=== PATIENT | female | born 1965 | race Caucasian/White ===

== ENCOUNTER 2017-07-08 17:57 | Emergency (ER) | payer OTHER, BC ==
[~2017-07-08] VITALS: Ht 167.6 cm; Wt 72.3 kg
[2017-07-08 18:02] VITALS: TEMP 36.4; Ht 167.6 cm; Wt 72.3 kg
--- NOTE | 2017-07-08 20:47 | EMERGENCY ROOM VISIT NOTE ---
History Report prepared by Janeth: Ara Cherry Under the Supervision of: Dr. Dominic Howard D.O. First contact with patient: 20:21 Chief Complaint: SHOULDER PAIN Stated Complaint: PAIN IN R SHOULDER,ARM AND HAND History of Present Illness The patient is a 51 year old female who presents to the Emergency Room with complaints of worsening right shoulder pain starting 4 days ago. The patient was pushing a 1500 lb roll at work when she injured her right shoulder. She thought she had just pulled a muscle, but the pain has worsened. The pain worsens with movement of her arm. She went to urgent care and was referred to the ED because she had swelling to her arm and fingers. She had an X-ray which did not show any fractures. She was sent to the ED over concerns of a blood clot. Source of History: patient Onset: 4 days ago Position: shoulder (right) Quality: other (pain) Timing: worsening Modifying Factors (Worsening): movement Note: Pt reports swelling to the arm and fingers. Review of Systems See HPI for pertinent positives & negatives. A total of 10 systems reviewed and were otherwise negative. Past Medical & Surgical Medical Problems: (1) No chronic problems Family History No pertinent family history stated. Social History Smoking Status: Current Every Day Smoker Marital Status: Occupation Status: employed Physical Exam Vital Signs Date Time Temp Pulse Resp B/P (MAP) Pulse Ox O2 Delivery O2 Flow Rate FiO2 07/08/17 22:12 78 17 142/81 95 07/08/17 20:26 74 16 157/84 96 Room Air 07/08/17 18:02 36.4 78 20 167/89 94 Room Air Physical Exam GENERAL: Patient is awake, alert, very anxious appearing and appears to be in significant pain. EYES: The conjunctivae are clear. The pupils are round and reactive. EARS, NOSE, MOUTH AND THROAT: The nose is without any evidence of any deformity. Mucous membranes are moist tongue is midline NECK: The neck is nontender and supple. RESPIRATORY: Normal respiratory effort is noted there is no evidence of wheezing rhonchi or rales CARDIOVASCULAR: Regular rate and rhythm noted there no murmurs rubs or gallops normal S1 normal S2 GASTROINTESTINAL: The abdomen is soft. Bowel sounds are present in all quadrants. Abdomen is nontender MUSCULOSKELETAL/EXTREMITIES: There is significant tenderness over the anterior right shoulder, ROM was diminished secondary to pain. SKIN: There is no obvious evidence of any rash. There are no petechiae, pallor or cyanosis noted. Pulses symmetric in both upper extremities. NEUROLOGIC: Patient is awake alert and oriented x3 Medical Decision & Procedures ER Provider Diagnostic Interpretation: Radiology results as stated below per my review and radiologist interpretation: R VENOUS DOPPLER UPR EXT UNIL HISTORY: Trauma. Pain. Edema. swelling COMPARISON STUDY: None. FINDINGS: The internal jugular vein is patent. There is normal flow within the subclavian vein. There is normal flow and compressibility within the left axillary, basilic, brachial, radial, ulnar, and visualized cephalic veins. IMPRESSION: No DVT within the upper extremity. The above report was generated using voice recognition software. It may contain grammatical, syntax or spelling errors. Electronically signed by: Greg Bowen M.D. 07/08/2017 9:09 PM Dictated Date/Time: 07/08/2017 9:09 PM Laboratory Results 07/08/17 21:21 Red Blood Count 4.41, Mean Corpuscular Volume 90.5, Mean Corpuscular Hemoglobin 31.1, Mean Corpuscular Hemoglobin Concent 34.3, Mean Platelet Volume 9.0, Neutrophils (%) (Auto) 59.5, Lymphocytes (%) (Auto) 28.4, Monocytes (%) (Auto) 9.5, Eosinophils (%) (Auto) 2.3, Basophils (%) (Auto) 0.2, Neutrophils # (Auto) 4.92, Lymphocytes # (Auto) 2.35, Monocytes # (Auto) 0.79, Eosinophils # (Auto) 0.19, Basophils # (Auto) 0.02 07/08/17 21:21 Test 07/08/17 21:21 White Blood Count 8.28 K/uL (4.8-10.8) Red Blood Count 4.41 M/uL (4.2-5.4) Hemoglobin 13.7 g/dL (12.0-16.0) Hematocrit 39.9 % (37-47) Mean Corpuscular Volume 90.5 fL (80-100) Mean Corpuscular Hemoglobin 31.1 pg (25-34) Mean Corpuscular Hemoglobin Concent 34.3 g/dl (32-36) Platelet Count 228 K/uL (130-400) Mean Platelet Volume 9.0 fL (7.4-10.4) Neutrophils (%) (Auto) 59.5 % Lymphocytes (%) (Auto) 28.4 % Monocytes (%) (Auto) 9.5 % Eosinophils (%) (Auto) 2.3 % Basophils (%) (Auto) 0.2 % Neutrophils # (Auto) 4.92 K/uL (1.4-6.5) Lymphocytes # (Auto) 2.35 K/uL (1.2-3.4) Monocytes # (Auto) 0.79 K/uL (0.11-0.59) Eosinophils # (Auto) 0.19 K/uL (0-0.5) Basophils # (Auto) 0.02 K/uL (0-0.2) RDW Standard Deviation 47.2 fL (36.4-46.3) RDW Coefficient of Variation 14.3 % (11.5-14.5) Immature Granulocyte % (Auto) 0.1 % Immature Granulocyte # (Auto) 0.01 K/uL (0.00-0.02) Anion Gap 7.0 mmol/L (3-11) Est Creatinine Clear Calc Drug Dose 86.0 ml/min Estimated GFR () 102.2 Estimated GFR (Non- 88.2 BUN/Creatinine Ratio 17.2 (10-20) Calcium Level 9.2 mg/dl (8.5-10.1) Total Bilirubin 0.5 mg/dl (0.2-1) Aspartate Amino Transf (AST/SGOT) 18 U/L (15-37) Alanine Aminotransferase (ALT/SGPT) 31 U/L (12-78) Alkaline Phosphatase 151 U/L (45-117) Troponin I < 0.015 ng/ml (0-0.045) Total Protein 7.4 gm/dl (6.4-8.2) Albumin 3.5 gm/dl (3.4-5.0) Globulin 3.9 gm/dl (2.5-4.0) Albumin/Globulin Ratio 0.9 (0.9-2) Laboratory results per my review. ECG Per My Interpretation Indication: back/shoulder pain Rate (beats per minute): 69 Rhythm: normal sinus Findings: no ectopy, other (no acute ST segment abnormality) Comparison ECG Date: no prior available ED Course 2022: The patient was evaluated in room B11A. A complete history and physical examination were performed. 2155: Upon reevaluation, the patient is stable. I discussed the results and treatment plan with her. She verbalized agreement of the treatment plan. She was discharged home. Medical Decision Prior records reviewed and summarized above. Triage Nursing notes reviewed. Differential diagnosis: Etiologies such as DVT, musculoskeletal, infection, joint effusion, trauma, lymphedema, idiopathic, CHF, as well as others were entertained.. The patient is a 51-year-old female who suffered an injury to her right shoulder at work. The history and physical exam appear to be consistent with a rotator cuff injury. She was initially seen at the [facility] for this evaluation but was sent to the emergency department for possible DVT in the right upper extremity. Ultrasound was negative. The patient was encouraged to follow-up with orthopedics for further evaluation and return to the emergency department immediately if symptoms change worsening the need arises. Medication Reconcilliation Current Medication List: was personally reviewed by me Blood Pressure Screening Patient's blood pressure: Elevated blood pressure Blood pressure disposition: Elevated BP felt to be situational Impression Primary Impression: Injury of right rotator cuff Scribe Attestation The scribe's documentation has been prepared under my direction and personally reviewed by me in its entirety. I confirm that the note above accurately reflects all work, treatment, procedures, and medical decision making performed by me. Departure Information Dispostion Home / Self-Care Referrals Amber Bell PA-C (PCP) Moisés Mart MD Forms HOME CARE DOCUMENTATION FORM, IMPORTANT VISIT INFORMATION Patient Instructions My [facility], Rotator Cuff Injury Additional Instructions Follow-up with occupational health as soon as possible for reevaluation. Continue to use the sling as instructed. I would also recommend a follow-up appointment with an orthopedic physician as soon as possible to further evaluate the pain in her shoulder. Problem Qualifiers Primary Impression: Injury of right rotator cuff Encounter type: initial encounter Qualified Codes: S46.001A - Unspecified injury of muscle(s) and tendon(s) of the rotator cuff of right shoulder, initial encounter
--- NOTE | 2017-07-08 21:10 | DIAGNOSTIC IMAGING REPORT ---
R VENOUS DOPPLER UPR EXT UNIL HISTORY: Trauma. Pain. Edema. swelling COMPARISON STUDY: None. FINDINGS: The internal jugular vein is patent. There is normal flow within the subclavian vein. There is normal flow and compressibility within the left axillary, basilic, brachial, radial, ulnar, and visualized cephalic veins. IMPRESSION: No DVT within the upper extremity. The above report was generated using voice recognition software. It may contain grammatical, syntax or spelling errors. Electronically signed by: Greg Bowen M.D. 07/08/2017 9:09 PM Dictated Date/Time: 07/08/2017 9:09 PM
[2017-07-08 21:33] LABS: BASO % 0.2 %; BASO ABS # 0.02 K/uL (0-0.2); EOS % 2.3 %; EOS ABS # 0.19 K/uL (0-0.5); HEMATOCRIT 39.9 % (37-47); HEMOGLOBIN 13.7 g/dL (12.0-16.0); IG# 0.01 K/uL (0.00-0.02); LYMPH % 28.4 %; LYMPH ABS # 2.35 K/uL (1.2-3.4); MEAN CELL VOLUME 90.5 fL (80-100); MEAN CORPUSCULAR HEMOGLOBIN 31.1 pg (25-34); MEAN CORPUSCULAR HGB CONC 34.3 g/dl (32-36); MONO % 9.5 %; MONO ABS # 0.79 K/uL (0.11-0.59); NEUT % 59.5 %; NEUT ABS # 4.92 K/uL (1.4-6.5); PLATELET COUNT 228 K/uL (130-400); RED CELL DISTRIBUTION WIDTH CV 14.3 % (11.5-14.5); RED CELL DISTRIBUTION WIDTH SD 47.2 fL (36.4-46.3); WHITE BLOOD COUNT 8.28 K/uL (4.8-10.8)
[2017-07-08 21:48] LABS: ALBUMIN 3.5 gm/dl (3.4-5.0); ALT/SGPT 31 U/L (12-78); BLOOD UREA NITROGEN 13 mg/dl (7-18); CALCIUM 9.2 mg/dl (8.5-10.1); CARBON DIOXIDE 26 mmol/L (21-32); CREATININE 0.77 mg/dl (0.60-1.20); GLUCOSE 87 mg/dl (70-99); SODIUM 139 mmol/L (136-145)
[2017-07-08 21:53] LABS: ALKALINE PHOSPHATASE 151 U/L (45-117); AST/SGOT 18 U/L (15-37); TOTAL PROTEIN 7.4 gm/dl (6.4-8.2)
[2017-07-08 22:12] VITALS: BP 142/81; PULSE 78; O2SAT 95
== END 2017-07-08 22:13 | disposition home or self-care (01) ==
LOC: C.EDB 17:57
DX: S46.001A Unspecified injury of muscle(s) and tendon(s) of the rotator cuff of right shoulder, initial encounter (principal); X50.9XXA Other and unspecified overexertion or strenuous movements or postures, initial encounter; Y99.0 Civilian activity done for income or pay; F17.200 Nicotine dependence, unspecified, uncomplicated

== ENCOUNTER 2022-11-06 10:21 | Inpatient (IN) ==
--- NOTE | 2022-11-06 10:56 | Emergency Department Note ---
Impression & Plan Elevated troponin ADMIT ED Provider Note HPI: The patient is a 57-year-old female with history of coronary artery disease status post 2 drug-eluting stents performed in [facility] on October 23, presents emergency department with 3 days of intermittent fever. Patient states she also at some point developed some chest "tightness" that is substernal in nature. Patient states this is been relatively constant over the past 2 days or so. Patient denies any shortness of breath. She states that she was diagnosed with a pulmonary embolism during that visit to the hospital on October 23 as well and is currently on Eliquis as well as aspirin and Plavix. On arrival here to the ED the patient is hemodynamically stable, she is in no acute distress on my initial assessment. ROS: - Per HPI Differential Diagnosis: Acute coronary syndrome, viral upper respiratory infection, pulmonary embolism, pneumothorax, pneumonia, myocarditis, pericarditis, amongst other potential pathologies. *Outpatient medications and allergy history reviewed. *Pertinent external medical records reviewed. PE: General: Alert HEENT: Normocephalic, trachea midline Eyes: Extraocular eye movement is intact, no scleral erythema Pulmonary: Clear to auscultation bilaterally, no wheezing Cardio: Regular rate and rhythm GI: Abdomen is soft to palpation : No suprapubic tenderness MSK: No evidence of trauma or malformation of the extremities, no edema Skin: No evidence of rash Neuro: Alert, no focal deficits Psychiatric: Cooperative warehouse lead: (As interpreted by myself): - An order was placed for continuous cardiac monitoring - Patient was noted to be in sinus rhythm with a rate of 62 EKG: (As interpreted by myself): Rate: 52 Rhythm: Sinus bradycardia Intervals: Within normal limits ST changes: No ST elevation Time: 1228 Interventions provided in ED: -Aspirin Medical Decision Making: Patient presented to the emergency department with nonspecific chest tightness. This is in the setting of coronary artery disease with stents placed just several weeks ago at a hospital in [place], [place]. Patient states that she is also currently on Eliquis for PE that was detected at that time. On arrival here to the ED the patient is hemodynamically stable and in no acute distress. IV was established and lab work obtained, patient was maintained on ironing worker, lab work shows negative troponin, EKG reviewed by myself does not show any evidence of acute ischemic changes. Lab work otherwise shows mild leukopenia with white blood cell count of 4.6, hemoglobin is normal, platelet count is also within normal limits, CMP does not show any critical findings, troponin is noted to be mildly elevated at 28.4. Given the patient's multiple risk factors including history of coronary artery disease with recent stent placement, I do feel she should be admitted, patient is in agreement. Low suspicion for PE as the source of the patient's discomfort as she is currently on anticoagulation. Case was discussed with the on-call [facility] hospitalist, Dr. Oscar, and the patient was placed for admission in stable condition. Consultants: Hospitalist, Dr. Oscar Disposition discussion held by myself with: Patient Diagnosis: 1. Chest pain, acute 2. History of coronary artery disease status post multiple stents 3. Elevated high-sensitivity troponin Disposition: Admission Greg Mcneill DO Emergency Medicine Past Med/Surg History Medical History (Updated 11/06/22 @ 14:35 by Greg Mcneill DO) CAD (coronary artery disease) Pulmonary embolism Tobacco abuse Surgical History (Updated 11/06/22 @ 12:18 by Rochelle Shin PA-C) Hx of appendectomy Hx of arthroscopic knee surgery Hx of cardiac cath 10/23 2 ANNAMARIE in RCA Hx of hernia repair Hx of tubal ligation Family History (Updated 11/06/22 @ 12:20 by Rochelle Shin PA-C) Father Cancer multiple myeloma Sister Pain disorder Social History (Updated 11/06/22 @ 12:20 by Rochelle Shin PA-C) Smoking Status: Current every day smoker Hx Alcohol Use: No Hx Substance Use: No Preferred Language: Lithuanian marital status: Current Living Situation: Spouse Feels Safe at Home: Yes Allergies Allergies Allergy/AdvReac Type Severity Reaction Status Date / Time No Known Allergies Allergy Unverified 11/06/22 10:41 Home Meds Home Medications Medication Instructions Recorded Confirmed apixaban 5 mg (74 tabs) tablets in 5 mg PO BID 11/06/22 11/06/22 a dose pack (Eliquis) aspirin 81 mg tablet,delayed 81 mg PO QAM 11/06/22 11/06/22 release atorvastatin 80 mg tablet 80 mg PO HS 11/06/22 11/06/22 carvedilol 3.125 mg tablet 3.125 mg PO BID 11/06/22 11/06/22 clopidogrel 75 mg tablet 75 mg PO QAM 11/06/22 11/06/22 losartan 50 mg tablet 50 mg PO QAM 11/06/22 11/06/22 varenicline 0.5 mg (11)-1 mg (42) 1 ea PO BID 11/06/22 11/06/22 tablets in a dose pack Results & Data (ED) Vital Signs Vital Signs - 24 hr 11/06/22 10:27 11/06/22 11:12 11/06/22 11:12 Temperature 36.7 C Temperature Source Oral Pulse Rate 73 Pulse Rate [Apical] 61 Respiratory Rate 18 18 Respiratory Effort / Characteristics Non-Labored Spontaneous Respiratory Depth Normal Normal Respiratory Pattern Regular Blood Pressure 107/66 Blood Pressure [Left Arm] 100/51 L Blood Pressure Mean 79 Blood Pressure Mean [Left Arm] 67 Blood Pressure Position Sitting Pulse Oximetry 98 93 Oxygen Delivery Method Room Air Room Air Room Air Sepsis Recent Fever Within 48 Hours No Sepsis New/Unexplained Change in Mental Status No Sepsis Action Taken by Nursing No Action Required 11/06/22 11:12 11/06/22 11:15 11/06/22 12:49 Temperature Temperature Source Pulse Rate 66 Pulse Rate [Apical] Respiratory Rate Respiratory Effort / Characteristics Respiratory Depth Respiratory Pattern Blood Pressure Blood Pressure [Left Arm] Blood Pressure Mean Blood Pressure Mean [Left Arm] Blood Pressure Position Pulse Oximetry Oxygen Delivery Method Room Air Room Air Sepsis Recent Fever Within 48 Hours Sepsis New/Unexplained Change in Mental Status Sepsis Action Taken by Nursing 11/06/22 13:26 11/06/22 13:31 Temperature Temperature Source Pulse Rate Pulse Rate [Apical] 54 L Respiratory Rate 19 Respiratory Effort / Characteristics Respiratory Depth Respiratory Pattern Blood Pressure Blood Pressure [Left Arm] 111/66 Blood Pressure Mean Blood Pressure Mean [Left Arm] 81 Blood Pressure Position Pulse Oximetry 96 Oxygen Delivery Method Room Air Room Air Sepsis Recent Fever Within 48 Hours Sepsis New/Unexplained Change in Mental Status Sepsis Action Taken by Nursing Laboratory Data 11/06/22 10:42 11/06/22 10:42 Lab Results 11/06/22 11/06/22 11/06/22 Range/Units 10:42 10:42 10:42 WBC 4.60 L (4.8-10.8) K/ul RBC 4.75 (4.20-5.40) M/uL Hgb 14.7 (12.0-16.0) g/dl Hct 43.1 (37.0-47.0) % MCV 90.7 (80.0-100.0) fL MCH 30.9 (25.0-34.0) pg MCHC 34.1 (32.0-36.0) g/dL RDW Std Deviation 41.1 (36.4-46.3) fL RDW Coeff of Joan 12.4 (11.5-14.5) % Plt Count 246 (130-400) K/uL MPV 9.6 (9.4-12.4) fL Immature Gran % (Auto) 0.2 % Neut % (Auto) 53.5 % Lymph % (Auto) 30.0 % Pepin % (Auto) 12.8 % Eos % (Auto) 2.8 % Baso % (Auto) 0.7 % Neut # (Auto) 2.46 (1.40-6.50) K/uL Lymph # (Auto) 1.38 (1.2-3.4) K/uL Pepin # (Auto) 0.59 (0.11-0.59) K/uL Eos # (Auto) 0.13 (0-0.50) K/uL Baso # (Auto) 0.03 (0-0.2) K/uL Immature Gran # (Auto) 0.01 (0.01-0.20) K/uL PT 11.2 (9.0-12.0) Seconds INR 1.0 (0.9-1.1) APTT 28.5 (21.0-31.0) Seconds PTT Ratio 1.0 Sodium 136 (136-145) mmol/L Potassium 4.4 (3.5-5.1) mmol/L Chloride 105 (98-107) mmol/L Carbon Dioxide 27 (21-32) mmol/L Anion Gap 4 (3-11) BUN 12 (6-23) mg/dl Creatinine 0.91 (0.6-1.2) mg/dl Est Cr Clr Drug Dosing 68.9 ml/min Est GFR ( Amer) 80.0 ml/min Est GFR (Non-Af Amer) 69.1 ml/min BUN/Creatinine Ratio 13.2 (10-20) Glucose 90 (70-99(Fasting)) mg/dl Calcium 9.5 (8.6-10.3) mg/dl Total Bilirubin 0.6 (0.2-1.0) mg/dl AST 17 (13-39) U/L ALT 22 (7-52) U/L Alkaline Phosphatase 142 H (34-104) U/L Troponin I High Sens 28.4 H (0-14) pg/ml Total Protein 7.3 (6.0-8.3) gm/dl Albumin 3.9 (3.4-5.0) gm/dl Globulin 3.4 (2.5-4.0) gm/dl Albumin/Globulin Ratio 1.1 (0.9-2) Urine Color Urine Appearance (Clear) Urine pH (4.5-7.5) Ur Specific Flomot (1.000-1.030) Urine Protein (Negative) Urine Glucose (UA) (Negative) Urine Ketones (Negative) Urine Blood (Negative) Urine Nitrite (Negative) Urine Bilirubin (Negative) Urine Urobilinogen (Negative) Ur Leukocyte Esterase (Negative) Urine WBC (Auto) (0-5) /hpf Urine RBC (Auto) (0-4) /hpf U Hyaline Cast (Auto) (0-5) /lpf U Epithel Cells (Auto) (0-5) /lpf Urine Bacteria (Auto) (Negative) Adenovirus (PCR) (NotDetected) B. pertussis DNA (PCR) (NotDetected) B.parapertussis DNA PCR (NotDetected) Lyme Disease IgG Ab (Negative) Lyme Disease IgM Ab (Negative) C. pneumoniae DNA (PCR) (NotDetected) Coronavirus OC43 (PCR) (NotDetected) Coronavirus HKU1 (PCR) (NotDetected) Coronavirus 229E (PCR) (NotDetected) SARS-CoV-2 (PCR) (NotDetected) Coronavirus NL63 (PCR) (NotDetected) Human Metapneumovir PCR (NotDetected) Influenza Type A (PCR) (NotDetected) Influenza Type B (PCR) (NotDetected) M. pneumoniae (PCR) (NotDetected) Parainfluenza 1 (PCR) (NotDetected) Parainfluenza 2 (PCR) (NotDetected) Parainfluenza 3 (PCR) (NotDetected) Parainfluenza 4 (PCR) (NotDetected) RSV (PCR) (NotDetected) Entero/Rhino (PCR) (NotDetected) 11/06/22 11/06/22 11/06/22 Range/Units 11:25 12:35 13:08 WBC (4.8-10.8) K/ul RBC (4.20-5.40) M/uL Hgb (12.0-16.0) g/dl Hct (37.0-47.0) % MCV (80.0-100.0) fL MCH (25.0-34.0) pg MCHC (32.0-36.0) g/dL RDW Std Deviation (36.4-46.3) fL RDW Coeff of Joan (11.5-14.5) % Plt Count (130-400) K/uL MPV (9.4-12.4) fL Immature Gran % (Auto) % Neut % (Auto) % Lymph % (Auto) % Pepin % (Auto) % Eos % (Auto) % Baso % (Auto) % Neut # (Auto) (1.40-6.50) K/uL Lymph # (Auto) (1.2-3.4) K/uL Pepin # (Auto) (0.11-0.59) K/uL Eos # (Auto) (0-0.50) K/uL Baso # (Auto) (0-0.2) K/uL Immature Gran # (Auto) (0.01-0.20) K/uL PT (9.0-12.0) Seconds INR (0.9-1.1) APTT (21.0-31.0) Seconds PTT Ratio Sodium (136-145) mmol/L Potassium (3.5-5.1) mmol/L Chloride (98-107) mmol/L Carbon Dioxide (21-32) mmol/L Anion Gap (3-11) BUN (6-23) mg/dl Creatinine (0.6-1.2) mg/dl Est Cr Clr Drug Dosing ml/min Est GFR ( Amer) ml/min Est GFR (Non-Af Amer) ml/min BUN/Creatinine Ratio (10-20) Glucose (70-99(Fasting)) mg/dl Calcium (8.6-10.3) mg/dl Total Bilirubin (0.2-1.0) mg/dl AST (13-39) U/L ALT (7-52) U/L Alkaline Phosphatase (34-104) U/L Troponin I High Sens (0-14) pg/ml Total Protein (6.0-8.3) gm/dl Albumin (3.4-5.0) gm/dl Globulin (2.5-4.0) gm/dl Albumin/Globulin Ratio (0.9-2) Urine Color Yellow Urine Appearance Clear (Clear) Urine pH 6.0 (4.5-7.5) Ur Specific Flomot 1.008 (1.000-1.030) Urine Protein Negative (Negative) Urine Glucose (UA) Negative (Negative) Urine Ketones Negative (Negative) Urine Blood Negative (Negative) Urine Nitrite Negative (Negative) Urine Bilirubin Negative (Negative) Urine Urobilinogen Negative (Negative) Ur Leukocyte Esterase Trace H (Negative) Urine WBC (Auto) 1-5 (0-5) /hpf Urine RBC (Auto) 0-4 (0-4) /hpf U Hyaline Cast (Auto) 0 (0-5) /lpf U Epithel Cells (Auto) >30 H (0-5) /lpf Urine Bacteria (Auto) Negative (Negative) Adenovirus (PCR) Not Detected (NotDetected) B. pertussis DNA (PCR) Not Detected (NotDetected) B.parapertussis DNA PCR Not Detected (NotDetected) Lyme Disease IgG Ab Negative (Negative) Lyme Disease IgM Ab Positive A (Negative) C. pneumoniae DNA (PCR) Not Detected (NotDetected) Coronavirus OC43 (PCR) Not Detected (NotDetected) Coronavirus HKU1 (PCR) Not Detected (NotDetected) Coronavirus 229E (PCR) Not Detected (NotDetected) SARS-CoV-2 (PCR) Not Detected (NotDetected) Coronavirus NL63 (PCR) Not Detected (NotDetected) Human Metapneumovir PCR Not Detected (NotDetected) Influenza Type A (PCR) Not Detected (NotDetected) Influenza Type B (PCR) Not Detected (NotDetected) M. pneumoniae (PCR) Not Detected (NotDetected) Parainfluenza 1 (PCR) Not Detected (NotDetected) Parainfluenza 2 (PCR) Not Detected (NotDetected) Parainfluenza 3 (PCR) Not Detected (NotDetected) Parainfluenza 4 (PCR) Not Detected (NotDetected) RSV (PCR) Not Detected (NotDetected) Entero/Rhino (PCR) Not Detected (NotDetected) Administered Medications Discontinued Medications Aspirin (Aspirin Chew 324 Mg) 324 mg PO NOW STA Stop: 11/06/22 11:37 Last Admin: 11/06/22 11:51 Dose: 324 mg Documented By: Sodium Chloride (Nss) 500 mls @ 999 mls/hr IV .Q31M ONE Stop: 11/06/22 12:06 Last Infusion: 11/06/22 12:23 Dose: 0 mls/hr Documented By: Admin: 11/06/22 11:52 Dose: 999 mls/hr Documented By: Imaging Data Radiologist's Impression: Chest X-Ray 11/06/22 10:41 XR chest 1V not portable CLINICAL HISTORY: Chest pain, nonspecific COMPARISON STUDY: No previous studies for comparison. FINDINGS: Lung volumes are normal. Lungs are clear. There is no pneumothorax or pleural effusion. Cardiac size is normal. Mediastinal contours are normal. There is no evidence for pulmonary edema. IMPRESSION: No acute cardiopulmonary findings. ACT 112: Negative or not required by law. Electronically signed by: Sorin Chang M.D. 11/06/2022 10:58 AM Discharge Plan Visit Data Chief Complaint: Chest Pain Stated Complaint: FEVER AFTER STENT PLACMENT, CHEST PAIN ED Provider: Greg Mcneill Discharge Problem: Elevated troponin Patient Disposition: Admitted As Inpatient Discharge Instructions Interventions: ED Discharge Assessment Last Done: 11/06/22 13:31 Forms Stand Alone Forms: My [facility] [employer] Prescriptions Prescriptions: No Action losartan 50 mg tablet 50 mg PO QAM atorvastatin 80 mg tablet 80 mg PO HS clopidogrel 75 mg tablet 75 mg PO QAM aspirin 81 mg tablet,delayed release (DR/EC) 81 mg PO QAM carvedilol 3.125 mg tablet 3.125 mg PO BID Eliquis 5 mg (74 tabs) tablets,dose pack 5 mg PO BID Rx Instructions: Start Date 10/24/22 - End Date 11/23/22 varenicline 0.5 mg (11)- 1 mg (42) tablets,dose pack 1 ea PO BID Rx Instructions: Start Date 10/30/22 - End Date 11/27/22 Referrals Referrals: Amber Bell PA-C [Outside Practitioners] -
--- NOTE | 2022-11-06 11:00 | XRay Report ---
XR chest 1V not portable CLINICAL HISTORY: Chest pain, nonspecific COMPARISON STUDY: No previous studies for comparison. FINDINGS: Lung volumes are normal. Lungs are clear. There is no pneumothorax or pleural effusion. Car diac size is normal. Mediastinal contours are normal. There is no evidence for pulmonary edema. IMPRESSION: No acute cardiopulmonary findings. ACT 112: Negative or not required by law. Electronically signed by: Sorin Chang M.D. 11/06/2022 10:58 AM
[2022-11-06 11:14] LABS: Basophils # (auto) 0.03 K/uL (0-0.2); Basophils % (auto) 0.7 %; Eosinophils # (auto) 0.13 K/uL (0-0.50); Eosinophils % (auto) 2.8 %; Hematocrit (blood only) 43.1 % (37.0-47.0); Hemoglobin 14.7 g/dl (12.0-16.0); Immature Granulocytes # (auto) 0.01 K/uL (0.01-0.20); Immature Granulocytes % (auto) 0.2 %; Lymphocytes # (auto) 1.38 K/uL (1.2-3.4); Mean Corpuscular Hemoglobin 30.9 pg (25.0-34.0); Mean Corpuscular Hgb Conc 34.1 g/dL (32.0-36.0); Mean Corpuscular Volume 90.7 fL (80.0-100.0); Mean Platelet Volume 9.6 fL (9.4-12.4); Monocytes # (auto) 0.59 K/uL (0.11-0.59); Monocytes % (auto) 12.8 %; Neutrophils # (auto) 2.46 K/uL (1.40-6.50); Neutrophils % (auto) 53.5 %; Platelet Count 246 K/uL (130-400); RDW Coefficient of Variation 12.4 % (11.5-14.5); RDW Standard Deviation 41.1 fL (36.4-46.3); Red Blood Count 4.75 M/uL (4.20-5.40)
[2022-11-06 11:28] LABS: Albumin Globulin Ratio 1.1 (0.9-2); Albumin Level 3.9 gm/dl (3.4-5.0); BUN Creatinine Ratio 13.2 (10-20); Bilirubin,Total 0.6 mg/dl (0.2-1.0); Calcium 9.5 mg/dl (8.6-10.3); Creatinine Clr Calc Pharmacy 68.9 ml/min; Est GFR (Non-African American) 69.1 ml/min; Globulin 3.4 gm/dl (2.5-4.0); Potassium 4.4 mmol/L (3.5-5.1); Total Protein 7.3 gm/dl (6.0-8.3)
[2022-11-06 11:34] LABS: Troponin I High Sensitivity 28.4 pg/ml (0-14)
[2022-11-06] MEDS ORDERED: ASPIRIN CHEW 324 MG PO STA (11:36)
[2022-11-06] MEDS ORDERED: SODIUM CHLORIDE 0.9% 500 ML IV ONE (11:36)
[2022-11-06 11:42] LABS: Partial Thromboplastin Time 28.5 Seconds (21.0-31.0); Prothrombin Time 11.2 Seconds (9.0-12.0)
--- NOTE | 2022-11-06 12:09 | History & Physical Report ---
Date of Service November 06, 2022 Assessment & Plan (1) Chest pain: (2) CAD (coronary artery disease): (3) Tobacco abuse: (4) Pulmonary embolism: Plan This is a 57 yr old F who has a significant PMH of tobacco abuse, newly dx CAD with recent PA and 2 ANNAMARIE placement on 10/23 while on vacation in [place] who presents due to lack of energy, chest tightness and fever x 2-3 days. Chest Pain CAD with recent ANNAMARIE x 2 10/23 to RCA while in [place] admit to PCU for ACS r/o repeat ecg cycle trops obtain echo consult cardiology - recently established with [facility] pt on asa, plavix, elquis (PE), coreg, losartan and statin Pulmonary Embolism dx in [place] during hospital admission for CAD at lower right lung continue eliquis Reported fever and chills biofire negative obtain lyme panel Tobacco abuse Continue to encourage smoke Patient using Chantix as outpatient DVT prophylaxis: Continue Eliquis Full code PCP: Viraj A total of 75 was spent coordinating, documenting, and providing care for this patient excluding time spent in the performance of separately billed services. This included personally viewing all current laboratories and imaging studies, medication reconciliation, outpatient chart review, and discussion with specialists. Pt was seen and examined in collaboration with Dr. Dillard, please see addendum History of Present Illness Chief Complaint: Lack of energy, chest tightness and fever x 2-3 days. Primary Care Provider: Az Cali MD This is a 57 yr old F who has a significant PMH of tobacco abuse, newly dx CAD with recent PA and 2 ANNAMARIE placement on 10/23 while on vacation in [place] who presents due to lack of energy, chest tightness and fever x 2-3 days. Two days ago she was up at her property and was picking [place]. She went back to her camper and was eating an orange and had no energy. She ended up napping for 2 hours which is unusual for her. She felt chilled and took her temperature and it was 101.4. She thought maybe she was dehydrated. She also describes chest tightness for the past 3 days. Describes it as mild, does not change with activity and is not associated with worsened SOB. Prior to she had her heart attack she mowed grass. Since having stents placed she has had lack of energy. She denies syncope, sweats, dizziness, lightheaded, current chest pain, sob, n/v/d, abd pain or change in bowel or bladder habits. SHe is working on quiting smoking and has cut down as well is taking chantix. Prior to stent placement she hasn't seen a DrTianna in 10 years. Allergies Allergy/AdvReac Type Severity Reaction Status Date / Time No Known Allergies Allergy Unverified 11/06/22 10:41 Home Medications Medication Instructions Recorded Confirmed Type apixaban 5 mg (74 tabs) tablets in 5 mg PO BID 11/06/22 11/06/22 History a dose pack (Eliquis) aspirin 81 mg tablet,delayed 81 mg PO QAM 11/06/22 11/06/22 History release atorvastatin 80 mg tablet 80 mg PO HS 11/06/22 11/06/22 History carvedilol 3.125 mg tablet 3.125 mg PO BID 11/06/22 11/06/22 History clopidogrel 75 mg tablet 75 mg PO QAM 11/06/22 11/06/22 History losartan 50 mg tablet 50 mg PO QAM 11/06/22 11/06/22 History varenicline 0.5 mg (11)-1 mg (42) 1 ea PO BID 11/06/22 11/06/22 History tablets in a dose pack Past Med/Surg History Medical History CAD (coronary artery disease) Pulmonary embolism Tobacco abuse Surgical History Hx of appendectomy Hx of arthroscopic knee surgery Hx of cardiac cath 10/23 2 ANNAMARIE in RCA Hx of hernia repair Hx of tubal ligation Family History Father Cancer multiple myeloma Sister Pain disorder Social History Smoking Status: Current every day smoker Hx Alcohol Use: No Hx Substance Use: No Preferred Language: Occitan marital status: Current Living Situation: Spouse Feels Safe at Home: Yes Review of Systems Review of Systems: All systems reviewed & are unremarkable except as noted in HPI & below Physical Exam Physical Exam: please refer to Dr. Sellathurai for physical exam findings Results & Data Results & Data Vital Signs (Past 12 Hours) Vital Signs Temp Pulse Pulse Resp BP BP Pulse Ox 11/06/22 11:15 11/06/22 11:12 11/06/22 11:12 11/06/22 11:12 61 18 100/51 L 93 11/06/22 10:27 36.7 C 73 18 107/66 98 O2 Del Method 11/06/22 11:15 Room Air 11/06/22 11:12 Room Air 11/06/22 11:12 Room Air 11/06/22 11:12 Room Air 11/06/22 10:27 Room Air Diagnostic Findings Chest X-Ray 11/06/22 10:41 XR chest 1V not portable CLINICAL HISTORY: Chest pain, nonspecific COMPARISON STUDY: No previous studies for comparison. FINDINGS: Lung volumes are normal. Lungs are clear. There is no pneumothorax or pleural effusion. Cardiac size is normal. Mediastinal contours are normal. There is no evidence for pulmonary edema. IMPRESSION: No acute cardiopulmonary findings. ACT 112: Negative or not required by law. Electronically signed by: Sorin Chang M.D. 11/06/2022 10:58 AM Medications Administered Medication List Discontinued Medications Aspirin (Aspirin Chew 324 Mg) 324 mg PO NOW STA Stop: 11/06/22 11:37 Last Admin: 11/06/22 11:51 Dose: 324 mg Documented By: Sodium Chloride (Nss) 500 mls @ 999 mls/hr IV .Q31M ONE Stop: 11/06/22 12:06 Last Admin: 11/06/22 11:52 Dose: 999 mls/hr Documented By: ECG Additional Comments: 63, nsr, t wave inversion in T and avf COVID-19 Results Results COVID-19 Adm Lab Results: RBC 4.75 M/uL (4.20-5.40) 11/06/22 WBC 4.60 K/ul (4.8-10.8) L 11/06/22 Hgb 14.7 g/dl (12.0-16.0) 11/06/22 Hct 43.1 % (37.0-47.0) 11/06/22 Plt Count 246 K/uL (130-400) 11/06/22 Neutrophils (%) (Auto) 53.5 % 11/06/22 Lymphocytes (%) (Auto) 30.0 % 11/06/22 Monocytes # (Auto) 0.59 K/uL (0.11-0.59) 11/06/22 Eosinophils # (Auto) 0.13 K/uL (0-0.50) 11/06/22 Immature Granulocyte % (Auto) 0.2 % 11/06/22 Neutrophils # (Auto) 2.46 K/uL (1.40-6.50) 11/06/22 Lymphocytes # (Auto) 1.38 K/uL (1.2-3.4) 11/06/22 Monocytes # (Auto) 0.59 K/uL (0.11-0.59) 11/06/22 Eosinophils # (Auto) 0.13 K/uL (0-0.50) 11/06/22 Basophils # (Auto) 0.03 K/uL (0-0.2) 11/06/22 Immature Granulocyte # (Auto) 0.01 K/uL (0.01-0.20) 3 Na 136 mmol/L (136-145) 11/06/22 K 4.4 mmol/L (3.5-5.1) 11/06/22 Cl 105 mmol/L (98-107) 11/06/22 CO2 27 mmol/L (21-32) 11/06/22 Anion Gap 4 (3-11) 11/06/22 BUN 12 mg/dl (6-23) 11/06/22 Creatinine 0.91 mg/dl (0.6-1.2) 11/06/22 BUN/Creatinine Ratio 13.2 (10-20) 11/06/22 Glucose Level 90 mg/dl (70-99(Fasting)) 11/06/22 Ca 9.5 mg/dl (8.6-10.3) 11/06/22 Total Bilirubin 0.6 mg/dl (0.2-1.0) 11/06/22 AST/SGOT 17 U/L (13-39) 11/06/22 ALT/SGPT 22 U/L (7-52) 11/06/22 Alkaline Phosphatase 142 U/L (34-104) H 11/06/22 Total Protein 7.3 gm/dl (6.0-8.3) 11/06/22 Albumin 3.9 gm/dl (3.4-5.0) 11/06/22 Globulin 3.4 gm/dl (2.5-4.0) 11/06/22 Albumin/Globulin Ratio 1.1 (0.9-2) 11/06/22 PTT 28.5 Seconds (21.0-31.0) 11/06/22 INR 1.0 (0.9-1.1) 11/06/22 Adenovirus (PCR) Not Detected (NotDetected) 11/06/22 B. parapertussis DNA (PCR) Not Detected (NotDetected) 10/19 B. pertussis DNA (PCR) Not Detected (NotDetected) 11/06/22 C. pneumoniae DNA (PCR) Not Detected (NotDetected) 3 Coronavirus Type OC43 (PCR) Not Detected (NotDetected) Coronavirus Type HKU1 (PCR) Not Detected (NotDetected) Coronavirus Type 229E (PCR) Not Detected (NotDetected) COVID-19 PCR Not Detected (NotDetected) 11/06/22 Coronavirus Type NL63 (PCR) Not Detected (NotDetected) Human Metapneumovirus (PCR) Not Detected (NotDetected) Influenza Virus Type A (PCR) Not Detected (NotDetected) Influenza Virus Type B (PCR) Not Detected (NotDetected) M. pneumoniae (PCR) Not Detected (NotDetected) 11/06/22 Parainfluenza Type 1 (PCR) Not Detected (NotDetected) 10/19 Parainfluenza Type 2 (PCR) Not Detected (NotDetected) 10/19 Parainfluenza Type 3 (PCR) Not Detected (NotDetected) 10/19 Parainfluenza Type 4 (PCR) Not Detected (NotDetected) 10/19 RSV (PCR) Not Detected (NotDetected) 11/06/22 Enterovirus/Rhinovirus (PCR) Not Detected (NotDetected) Chest X-Ray 11/06/22 Code Status & VTE Plan Code Status FULL CODE VTE Prophylaxis Plan VTE Prophylaxis will be ordered: No Reason for no VTE drug order: Treatment not indicated Supervising Physician Co-Signing Physician Notes Pt is a 57 y/o F with hx of CAD s/p stent, recent dx of PE (on eliquis), HTN, chronic smoker admitted for Chest pain. PE: NAD, well developed Lungs: CTA, no wheezing or crackles Cardiac: Normal S1/S2, no murmur Abd: ND, NT, soft MSK: no LE edema Psych: AAOx3, normal affect A/P: Chest pain: -EKG: TWI on on lead III, and aVF -initial trop is elevated --- will admit to tele, trend trop and cardiology consult & obtain echo -will obtain am EKG Chills and fever: -afebrile in the ER - CXR: no acute finding -will get lyme titer and viral panel neg Agree with A/P by Rochelle Shin PA-C
--- NOTE | 2022-11-06 12:32 | Electrocardiogram Report ---
Test Reason : Blood Pressure : / mmHG Vent. Rate : 063 BPM Atrial Rate : 063 BPM P-R Int : 168 ms QRS Dur : 076 ms QT Int : 394 ms P-R-T Axes : 067 -14 -12 degrees QTc Int : 403 ms Normal sinus rhythm Low voltage QRS Cannot rule out Anterior infarct (cited on or before 08-JUL-2017) Nonspecific T wave abnormality Abnormal ECG When compared with ECG of 08-JUL-2017 20:32, Questionable change in initial forces of Septal leads T wave inversion now evident in Inferior leads Confirmed by Dominic Grant ([id number]) on 11/06/2022 12:32:20 PM Referred By: Confirmed By:Dominic Grant
[2022-11-06 12:33] LABS: Adenovirus PCR Not Detected (NotDetected); Bordetella parapertussis PCR Not Detected (NotDetected); Bordetella pertussis PCR Not Detected (NotDetected); Chlamydia pneumoniae PCR Not Detected (NotDetected); Coronavirus 229E PCR Not Detected (NotDetected); Coronavirus CoV-2 (COVID19)PCR Not Detected (NotDetected); Coronavirus HKU1 PCR Not Detected (NotDetected); Coronavirus NL63 PCR Not Detected (NotDetected); Coronavirus OC43PCR Not Detected (NotDetected); Human Metapneumovirus PCR Not Detected (NotDetected); Influenza A PCR Not Detected (NotDetected); Influenza B PCR Not Detected (NotDetected); Mycoplasma pneumoniae PCR Not Detected (NotDetected); Parainfluenza Virus 1 PCR Not Detected (NotDetected); Parainfluenza Virus 2 PCR Not Detected (NotDetected); Parainfluenza Virus 3 PCR Not Detected (NotDetected); Parainfluenza Virus 4 PCR Not Detected (NotDetected); Respiratory Syncytial VirusPCR Not Detected (NotDetected); Rhinovirus/Enterovirus PCR Not Detected (NotDetected)
[2022-11-06 13:30] LABS: Appearance Urine Clear (Clear); Bacteria Urine Automated Negative (Negative); Bilirubin Urine Negative (Negative); Blood Urine Negative (Negative); Cast Urine Automated 0 /lpf (0-5); Color Urine Yellow; Epithelial Cell Urine Auto >30 /lpf (0-5); Glucose Urine UA Negative (Negative); Ketones Urine Negative (Negative); Leukocyte Esterase Urine Trace (Negative); Nitrite Urine Negative (Negative); Protein Urine Negative (Negative); RBC Urine Automated 0-4 /hpf (0-4); Specific Gravity Urine 1.008 (1.000-1.030); Urobilinogen Urine Negative (Negative)
[2022-11-06 14:10] LABS: Lyme Ab IgG w/WB Rflx Negative (Negative)
[2022-11-06 14:20] LABS: Lyme Ab IgM w/WB Rflx Positive (Negative)
--- NOTE | 2022-11-06 14:55 | Cardiology Consultation ---
Date of Consultation November 06, 2022 Assessment & Plan (1) Chest pain: (2) CAD (coronary artery disease): (3) Pulmonary embolism: (4) Elevated troponin: Plan 57-year-old female admitted with fevers and mild chest tightness over the past 72 hours. Continue evaluation for infectious process. Viral panel negative. Recent tick bite noted without target rash. Lyme screen pending at this time. Rule out acute coronary syndrome with cardiac enzymes x3 sets. Preliminary review of bedside echocardiogram demonstrates preserved LV systolic function without significant wall motion abnormality. EKG unchanged when compared to recent study dated 11/01/2022. Recommend repeat ECG with any worsening chest discomfort. Continue Eliquis, aspirin, clopidogrel, and statin therapy as ordered. History of Present Illness Reason for Consultation: chest pain, recent NSTEMi and RCA Stent Requesting Physician: Rochelle Shin PA-C Attending Physician: Dr. De La O History of Present Illness 57-year-old female present to the emergency department secondary to fevers and chest discomfort. Reports fever beginning on Saturday with temperature as high as 101 F. Fevers persisted through Saturday and improved on Saturday with temperature running approximately 99 F. Notes mild chest tightness described as less than 1/10 in severity. Symptoms dissimilar to recent myocardial infarction. Prior angina equivalent primarily throat discomfort with severe chest heaviness. The symptoms have not recurred. Current chest tightness persistent for more than 24 hours. No alleviating or aggravating factors. Denies orthopnea, PND, or lower extremity edema. Notes chronic cough without sputum production. Unfortunately, continues to smoke 1 pack of cigarettes per day. Recent history significant for non-STEMI status post stenting of an occluded mid, codominant, right coronary artery while visiting family in [place] 10/22/2022. Diagnosed with pulmonary embolus at time of her myocardial infarction and treated with Eliquis in addition to dual antiplatelet therapy. Reports anginal symptoms lasting more than 24 hours prior to cardiac catheterization and stent implantation. Patient denies any noncompliance with medical therapies. Has not used any sublingual nitroglycerin. Allergies Allergy/AdvReac Type Severity Reaction Status Date / Time No Known Allergies Allergy Unverified 11/06/22 10:41 Home Medications Medication Instructions Recorded Confirmed Type apixaban 5 mg (74 tabs) tablets in 5 mg PO BID 11/06/22 11/06/22 History a dose pack (Eliquis) aspirin 81 mg tablet,delayed 81 mg PO QAM 11/06/22 11/06/22 History release atorvastatin 80 mg tablet 80 mg PO HS 11/06/22 11/06/22 History carvedilol 3.125 mg tablet 3.125 mg PO BID 11/06/22 11/06/22 History clopidogrel 75 mg tablet 75 mg PO QAM 11/06/22 11/06/22 History losartan 50 mg tablet 50 mg PO QAM 11/06/22 11/06/22 History varenicline 0.5 mg (11)-1 mg (42) 1 ea PO BID 11/06/22 11/06/22 History tablets in a dose pack Patient History Medical History CAD (coronary artery disease) Pulmonary embolism Tobacco abuse Surgical History Hx of appendectomy Hx of arthroscopic knee surgery Hx of cardiac cath 10/23 2 ANNAMARIE in RCA Hx of hernia repair Hx of tubal ligation Family History Father Cancer multiple myeloma Sister Pain disorder Social History Smoking Status: Current every day smoker Hx Alcohol Use: No Hx Substance Use: No Preferred Language: Latvian Communication Ability: Effective Esthetician/Owner Required: No Beliefs That Will Affect Care: None marital status: Current Living Situation: Spouse Feels Safe at Home: Yes Safety Concerns: Feels Safe At This Time Assistive Devices: None Review of Systems Review of Systems: All systems reviewed & are unremarkable except as noted in Subjective Physical Exam Constitutional: well developed and well nourished; no acute distress Respiratory: normal respiratory effort; no respiratory distress, no labored breathing and no retractions Auscultation: lungs clear to auscultation bilaterally; no crackles, no rales, no rhonchi and no wheezes Cardiovascular: Rate/Rhythm: regular rate and regular rhythm Heart Sounds: normal S1 and normal S2; no murmur Vessels: radial pulses present; no JVD and no carotid bruit Extremities: no edema Gastrointestinal (Abdomen): Inspection/Auscultation: abdomen normal to inspection and normal bowel sounds; abdomen not distended Percussion/Palpation: abdomen soft; abdomen nontender, no guarding and abdomen not rigid Neurologic: CN's II-XI intact bilaterally and moves all extremities; no focal motor deficits Motor/Sensory: no tremor Psychiatric: A+Ox3, euthymic affect Results & Data Vital Signs (Past 12 Hours) Vital Signs Temp Pulse Pulse Resp BP BP Pulse Ox 11/06/22 13:31 11/06/22 13:26 54 L 19 111/66 96 11/06/22 12:49 66 11/06/22 11:15 11/06/22 11:12 11/06/22 11:12 11/06/22 11:12 61 18 100/51 L 93 11/06/22 10:27 36.7 C 73 18 107/66 98 O2 Del Method 11/06/22 13:31 Room Air 11/06/22 13:26 Room Air 11/06/22 12:49 11/06/22 11:15 Room Air 11/06/22 11:12 Room Air 11/06/22 11:12 Room Air 11/06/22 11:12 Room Air 11/06/22 10:27 Room Air Laboratory Results Cardiac Enzymes 11/06/22 Range/Units 10:42 AST 17 (13-39) U/L Troponin I High Sens 28.4 H (0-14) pg/ml Coagulation 11/06/22 Range/Units 10:42 PT 11.2 (9.0-12.0) Seconds APTT 28.5 (21.0-31.0) Seconds CBC 11/06/22 Range/Units 10:42 WBC 4.60 L (4.8-10.8) K/ul RBC 4.75 (4.20-5.40) M/uL Hgb 14.7 (12.0-16.0) g/dl Hct 43.1 (37.0-47.0) % Plt Count 246 (130-400) K/uL Neut # (Auto) 2.46 (1.40-6.50) K/uL Lymph # (Auto) 1.38 (1.2-3.4) K/uL [place] # (Auto) 0.59 (0.11-0.59) K/uL Eos # (Auto) 0.13 (0-0.50) K/uL Baso # (Auto) 0.03 (0-0.2) K/uL Comprehensive Metabolic Panel 11/06/22 Range/Units 10:42 Sodium 136 (136-145) mmol/L Potassium 4.4 (3.5-5.1) mmol/L Chloride 105 (98-107) mmol/L Carbon Dioxide 27 (21-32) mmol/L BUN 12 (6-23) mg/dl Creatinine 0.91 (0.6-1.2) mg/dl Glucose 90 (70-99(Fasting)) mg/dl Calcium 9.5 (8.6-10.3) mg/dl AST 17 (13-39) U/L ALT 22 (7-52) U/L Alkaline Phosphatase 142 H (34-104) U/L Total Protein 7.3 (6.0-8.3) gm/dl Albumin 3.9 (3.4-5.0) gm/dl Intake and Output 11/05/22 11/06/22 11/06/22 22:59 06:59 14:59 Intake Total 500 / 500 Balance 500 / 500 Intake: IV 500 / 500 Sodium Chloride 0.9% 500 ml @ 500 / 500 999 mls/hr IV .Q31M ONE Rx#: [id number] Other: Weight 75 kg Weight Measurement Method Chair Scale Patient Weight 11/07/22 06:59 Weight 75 kg ECG Additional Comments: ECG: Sinus bradycardia, age-indeterminate inferior infarct with inverted T waves. No change when compared to ECG dated 11/01/2022.
[2022-11-06] MEDS ORDERED: ACETAMINOPHEN 325 MG TAB PO PRN (15:40)
[2022-11-06] MEDS ORDERED: ALUMINUM/MAGNESIUM SUSP 30 ML UDC PO PRN (15:40)
[2022-11-06] MEDS ORDERED: MAGNESIUM HYDROXIDE SUSP 30 ML UDC PO PRN (15:40)
[2022-11-06] MEDS ORDERED: ONDANSETRON INJ 2 MG/ML 2 ML VIAL IV PRN (15:40)
[2022-11-06] MEDS ORDERED: POLYETHYLENE (MIRALAX) 17 GM PACK PO PRN (15:40)
--- NOTE | 2022-11-06 16:13 | Electrocardiogram Report ---
Test Reason : Blood Pressure : / mmHG Vent. Rate : 052 BPM Atrial Rate : 052 BPM P-R Int : 172 ms QRS Dur : 078 ms QT Int : 432 ms P-R-T Axes : 064 -17 -20 degrees QTc Int : 401 ms Sinus bradycardia Low voltage QRS Inferior infarct , age undetermined Abnormal ECG When compared with ECG of 06-NOV-2022 10:34, No significant change was found Confirmed by Dominic Grant ([id number]) on 11/06/2022 4:13:11 PM Referred By: Az Cali Confirmed By:Dominic Grant
[2022-11-06] MEDS: carvediloL 3.125 MG TAB PO SCH (22:10)
[2022-11-06] MEDS: APIXABAN 5 MG TABLET PO SCH (22:11)
[2022-11-07 06:39] LABS: Basophils # (auto) 0.03 K/uL (0-0.2); Basophils % (auto) 0.5 %; Eosinophils # (auto) 0.25 K/uL (0-0.50); Eosinophils % (auto) 4.2 %; Hematocrit (blood only) 38.1 % (37.0-47.0); Hemoglobin 13.2 g/dl (12.0-16.0); Immature Granulocytes # (auto) 0.02 K/uL (0.01-0.20); Immature Granulocytes % (auto) 0.3 %; Lymphocytes # (auto) 1.67 K/uL (1.2-3.4); Lymphocytes % (auto) 28.3 %; Mean Corpuscular Hemoglobin 30.8 pg (25.0-34.0); Mean Corpuscular Hgb Conc 34.6 g/dL (32.0-36.0); Mean Platelet Volume 10.1 fL (9.4-12.4); Monocytes # (auto) 0.71 K/uL (0.11-0.59); Neutrophils # (auto) 3.22 K/uL (1.40-6.50); Neutrophils % (auto) 54.7 %; Platelet Count 217 K/uL (130-400); RDW Coefficient of Variation 12.5 % (11.5-14.5); RDW Standard Deviation 40.6 fL (36.4-46.3); Red Blood Count 4.28 M/uL (4.20-5.40)
[2022-11-07 06:46] LABS: Albumin Globulin Ratio 1.2 (0.9-2); Albumin Level 3.3 gm/dl (3.4-5.0); BUN Creatinine Ratio 23.4 (10-20); Bilirubin,Total 0.4 mg/dl (0.2-1.0); Calcium 9.2 mg/dl (8.6-10.3); Chol HDL Ratio 4.9 (0-5); Creatinine Clr Calc Pharmacy 66.8 ml/min; Est GFR (Non-African American) 66.4 ml/min; Globulin 2.8 gm/dl (2.5-4.0); Potassium 4.5 mmol/L (3.5-5.1); Total Protein 6.1 gm/dl (6.0-8.3)
[2022-11-07] MEDS: APIXABAN 5 MG TABLET PO SCH ×2 (08:27→21:58)
[2022-11-07] MEDS: CLOPIDOGREL BISULFATE 75 MG TAB PO SCH (08:28)
[2022-11-07] MEDS: ATORVASTATIN 40 MG TAB PO SCH (08:28)
[2022-11-07] MEDS: ASPIRIN 81 MG ECTAB PO SCH (08:30)
[2022-11-07] MEDS: carvediloL 3.125 MG TAB PO SCH (08:38)
[2022-11-07] MEDS ORDERED: LOSARTAN POTASSIUM 50 MG TAB PO SCH (09:00)
--- NOTE | 2022-11-07 10:45 | Cardiology Progress Note ---
Date of Service November 07, 2022 Assessment & Plan (1) Chest pain: (2) CAD (coronary artery disease): (3) Pulmonary embolism: (4) Elevated troponin: (5) Lyme disease, acute: Plan 57-year-old female admitted with fevers and mild chest tightness. Stable ECG and echocardiogram. Troponins minimally elevated and flat, not indicative of acute coronary syndrome. Chest discomfort has resolved. Lyme screen demonstrates positive IgM. Patient scheduled to receive antibiotics this AM. Confirmatory Western blot pending. Notes fatigue with ongoing hypotension. Carvedilol and losartan recently prescribed after myocardial infarction in [place]. Recommend discontinuation of carvedilol. Will transition to low-dose Toprol-XL 12.5 mg daily. Reduce losartan to 25 mg daily. Continue aspirin, clopidogrel, and Eliquis as ordered. Patient recently evaluated by cardiology in the outpatient setting with plans to discontinue aspirin in the next 3 to 4 weeks. Admission and Anticipated Discharge Date Admission Date: November 06, 2022 Subjective Patient seen examined the bedside. Chest discomfort has resolved. Lyme screen positive IgM noted. No recurrent fevers. Reports ongoing fatigue. Borderline hypotensive this AM. Coreg and losartan held. Telemetry reveals sinus rhythm. Review of Systems Review of Systems: All systems reviewed & are unremarkable except as noted in Subjective Physical Exam Constitutional: well developed and well nourished; no acute distress Respiratory: normal respiratory effort; no respiratory distress, no labored breathing and no retractions Auscultation: lungs clear to auscultation bilaterally; no crackles, no rales, no rhonchi and no wheezes Cardiovascular: Rate/Rhythm: regular rate and regular rhythm Heart Sounds: normal S1 and normal S2; no murmur Vessels: radial pulses present; no JVD and no carotid bruit Extremities: no edema Gastrointestinal (Abdomen): Inspection/Auscultation: abdomen normal to inspection and normal bowel sounds; abdomen not distended Percussion/Palpation: abdomen soft; abdomen nontender, no guarding and abdomen not rigid Neurologic: CN's II-XI intact bilaterally and moves all extremities; no focal motor deficits Motor/Sensory: no tremor Psychiatric: A+Ox3, euthymic affect Results & Data Vital Signs (Past 12 Hours) Vital Signs Temp Pulse Pulse Resp BP Pulse Ox O2 Del Method 11/07/22 07:21 36.5 C 63 18 98/60 L 94 Room Air 11/07/22 00:00 62 06/21/23 03:00 36.5 C 58 L 20 101/62 98 Room Air Laboratory Results Cardiac Enzymes 11/06/22 11/06/22 11/06/22 Range/Units 10:42 14:25 18:34 AST 17 (13-39) U/L Troponin I High Sens 28.4 H 27.3 H 23.4 H (0-14) pg/ml 11/07/22 11/07/22 Range/Units 00:35 05:40 AST 15 (13-39) U/L Troponin I High Sens 25.8 H (0-14) pg/ml Coagulation 11/06/22 Range/Units 10:42 PT 11.2 (9.0-12.0) Seconds APTT 28.5 (21.0-31.0) Seconds Lipids 11/07/22 Range/Units 05:40 Triglycerides 69 (0-150) mg/dl Cholesterol 128 (0-200) mg/dl HDL Cholesterol 26 mg/dl Cholesterol/HDL Ratio 4.9 (0-5) CBC 11/06/22 11/07/22 Range/Units 10:42 05:40 WBC 4.60 L 5.90 (4.8-10.8) K/ul RBC 4.75 4.28 (4.20-5.40) M/uL Hgb 14.7 13.2 (12.0-16.0) g/dl Hct 43.1 38.1 (37.0-47.0) % Plt Count 246 217 (130-400) K/uL Neut # (Auto) 2.46 3.22 (1.40-6.50) K/uL Lymph # (Auto) 1.38 1.67 (1.2-3.4) K/uL [place] # (Auto) 0.59 0.71 H (0.11-0.59) K/uL Eos # (Auto) 0.13 0.25 (0-0.50) K/uL Baso # (Auto) 0.03 0.03 (0-0.2) K/uL Comprehensive Metabolic Panel 11/06/22 11/07/22 Range/Units 10:42 05:40 Sodium 136 137 (136-145) mmol/L Potassium 4.4 4.5 (3.5-5.1) mmol/L Chloride 105 107 (98-107) mmol/L Carbon Dioxide 27 25 (21-32) mmol/L BUN 12 22 (6-23) mg/dl Creatinine 0.91 0.94 (0.6-1.2) mg/dl Glucose 90 88 (70-99(Fasting)) mg/dl Calcium 9.5 9.2 (8.6-10.3) mg/dl AST 17 15 (13-39) U/L ALT 22 21 (7-52) U/L Alkaline Phosphatase 142 H 126 H (34-104) U/L Total Protein 7.3 6.1 (6.0-8.3) gm/dl Albumin 3.9 3.3 L (3.4-5.0) gm/dl Intake and Output 11/06/22 11/07/22 11/07/22 22:59 06:59 14:59 Intake Total 250 / 750 Balance 250 / 750 Intake: Oral 250 / 250 Other: Other Intake Source NPO Weight 75.07 kg 75.1 kg Weight Measurement Method Built in [facility] Standing Scale
[2022-11-07] MEDS: DOXYCYCLINE HYCLATE 100 MG in DEXTROSE 5% 100 ML IV SCH ×2 (11:16→21:59)
--- NOTE | 2022-11-07 13:04 | Hospitalist Progress Note ---
Date of Service November 07, 2022 Assessment & Plan (1) Chest pain: (2) CAD (coronary artery disease): (3) Tobacco abuse: (4) Pulmonary embolism: Plan This is a 57 yr old F who has a significant PMH of tobacco abuse, newly dx CAD with recent CT and 2 ANNAMARIE placement on 10/23 while on vacation in [place] who presents due to lack of energy, chest tightness and fever x 2-3 days. Chest Pain CAD with recent ANNAMARIE x 2 10/23 to RCA while in [place] on 10/23 Serial cardiac enzymes x3 remain unremarkable EKG did not show any significant changes Echo of the heart showed EF of 55 to 60%, LV systolic function normal, grade 1 diastolic dysfunction no regional wall motion abnormalities, there is mild tricuspid regurgitation and Doppler findings do not suggest pulmonary hypertension Appreciate cardiology input and recommendation We will continue asa, plavix, elquis (PE), coreg, losartan and statin Positive Lyme titer Positive for IgG and IgM No associated symptoms of arthralgia/arthritis or rash or any other symptoms Await definitive DNA testing Started on intravenous doxycycline Pulmonary Embolism dx in [place] during hospital admission for CAD at lower right lung continue eliquis Reported fever and chills biofire negative obtain lyme panel-positive as above No more fever and no chills Tobacco abuse Continue to encourage smoke Patient using Chantix as outpatient DVT prophylaxis: Continue Eliquis Full code PCP: Viraj If remains stable likely discharge tomorrow Admission and Anticipated Discharge Date Admission Date: November 07, 2022 Subjective 11/07/2022 The patient was seen and examined in telemetry unit She has been free from any chest pain She was noted to have Titer positive for immunoglobin Dr. Without any other associated with symptoms Review of Systems Review of Systems: All systems reviewed and are unremarkable except as noted below Physical Exam Physical Exam: Lying in bed comfortably Constitutional: well developed, well nourished and + obese; not ill appearing Eyes: PERRL, conjunctivae normal, anicteric sclerae ENMT: external ear and nose normal, oropharynx normal Respiratory: no respiratory distress Auscultation: lungs clear to auscultation bilaterally Cardiovascular: Rate/Rhythm: regular rate and regular rhythm; not tachycardic Heart Sounds: normal S1 and normal S2; no murmur Extremities: no edema Gastrointestinal (Abdomen): Inspection/Auscultation: normal bowel sounds; abdomen not distended Percussion/Palpation: abdomen soft; abdomen nontender Musculoskeletal: No acute arthritis involving any joint Neurologic: Alert, awake and oriented times. No focal sensory and/or motor deficit Psychiatric: A+Ox3, euthymic affect Lymphatic: no cervical or axillary lymphadenopathy Results & Data Results & Data Vital Signs (Past 12 Hours) Vital Signs Temp Pulse Pulse Resp BP Pulse Ox O2 Del Method 11/07/22 08:00 60 11/07/22 11:24 36.7 C 70 18 92/52 L 96 Room Air 11/07/22 07:21 36.5 C 63 18 98/60 L 94 Room Air 11/07/22 03:00 36.5 C 58 L 20 101/62 98 Room Air Laboratory Results Short CBC 11/07/22 Range/Units 05:40 WBC 5.90 (4.8-10.8) K/ul Hgb 13.2 (12.0-16.0) g/dl Hct 38.1 (37.0-47.0) % Plt Count 217 (130-400) K/uL BMP 11/07/22 05:40 Sodium 137 Potassium 4.5 Chloride 107 Carbon Dioxide 25 BUN 22 Creatinine 0.94 Glucose 88 Calcium 9.2 Liver Function 11/07/22 Range/Units 05:40 Total Bilirubin 0.4 (0.2-1.0) mg/dl AST 15 (13-39) U/L ALT 21 (7-52) U/L Alkaline Phosphatase 126 H (34-104) U/L Albumin 3.3 L (3.4-5.0) gm/dl Urine 11/06/22 Range/Units 13:08 Urine Color Yellow Urine Appearance Clear (Clear) Urine pH 6.0 (4.5-7.5) Ur Specific [place] 1.008 (1.000-1.030) Urine Protein Negative (Negative) Urine Glucose (UA) Negative (Negative) Medications Administered Current Inpatient Medications Acetaminophen (Acetaminophen 325 Mg Tab) 650 mg PO Q4H PRN PRN Reason: Pain or Fever Stop: 12/06/22 15:39 Al Hydrox/Mg Hydrox/Simethicone (Aluminum/Magnesium Susp 30 Ml Udc) 15 ml PO Q4H PRN PRN Reason: Dyspepsia Stop: 12/06/22 15:39 Apixaban (Apixaban 5 Mg Tablet) 5 mg PO BID [facility] Stop: 12/06/22 20:59 Last Admin: 11/07/22 08:27 Dose: 5 mg Aspirin (Aspirin 81 Mg Ectab) 81 mg PO DAILY [facility] Stop: 12/07/22 08:59 Last Admin: 11/07/22 08:30 Dose: 81 mg Atorvastatin Calcium (Atorvastatin 40 Mg Tab) 80 mg PO DAILY [facility] Stop: 12/07/22 08:59 Last Admin: 11/07/22 08:28 Dose: 80 mg Clopidogrel Bisulfate (Clopidogrel Bisulfate 75 Mg Tab) 75 mg PO DAILY [facility] Stop: 12/07/22 08:59 Last Admin: 11/07/22 08:28 Dose: 75 mg Doxycycline Hyclate 100 mg/ (Dextrose) 110 mls @ 50 mls/hr IV Q12H [facility] Stop: 11/17/22 09:59 Last Admin: 11/07/22 11:16 Dose: 50 mls/hr Losartan Potassium (Losartan Potassium 25 Mg Tab) 25 mg PO DAILY [facility] Stop: 12/08/22 08:59 Magnesium Hydroxide (Magnesium Hydroxide Susp 30 Ml Udc) 30 ml PO Q12H PRN PRN Reason: Constipation Stop: 12/06/22 15:39 Metoprolol Succinate (Metoprolol Succ 25mg Ext Rel Tab) 12.5 mg PO QAM [facility] Stop: 12/08/22 08:59 Ondansetron HCl (Ondansetron Inj 2 Mg/Ml 2 Ml Vial) 4 mg IV Q6H PRN PRN Reason: Nausea Stop: 12/06/22 15:39 Polyethylene Glycol (Polyethylene (Miralax) 17 Gm Pack) 17 gm PO DAILY PRN PRN Reason: Constipation Stop: 12/06/22 15:39
--- NOTE | 2022-11-07 15:44 | Electrocardiogram Report ---
Test Reason : Blood Pressure : / mmHG Vent. Rate : 055 BPM Atrial Rate : 055 BPM P-R Int : 178 ms QRS Dur : 088 ms QT Int : 458 ms P-R-T Axes : 067 -12 -20 degrees QTc Int : 438 ms Sinus bradycardia Low voltage QRS Nonspecific T wave abnormality Abnormal ECG When compared with ECG of 06-NOV-2022 12:28, No significant change was found Confirmed by Dominic Grant ([id number]) on 11/07/2022 3:44:35 PM Referred By: Az Cali Confirmed By:Dominic Grant
[2022-11-08 06:26] LABS: Basophils # (auto) 0.02 K/uL (0-0.2); Basophils % (auto) 0.3 %; Eosinophils # (auto) 0.23 K/uL (0-0.50); Eosinophils % (auto) 3.9 %; Hematocrit (blood only) 37.8 % (37.0-47.0); Immature Granulocytes # (auto) 0.01 K/uL (0.01-0.20); Immature Granulocytes % (auto) 0.2 %; Lymphocytes # (auto) 1.77 K/uL (1.2-3.4); Lymphocytes % (auto) 29.7 %; Mean Corpuscular Hemoglobin 30.4 pg (25.0-34.0); Mean Corpuscular Hgb Conc 34.4 g/dL (32.0-36.0); Mean Corpuscular Volume 88.3 fL (80.0-100.0); Mean Platelet Volume 9.9 fL (9.4-12.4); Monocytes % (auto) 10.1 %; Neutrophils # (auto) 3.33 K/uL (1.40-6.50); Neutrophils % (auto) 55.8 %; Platelet Count 229 K/uL (130-400); RDW Coefficient of Variation 12.4 % (11.5-14.5); Red Blood Count 4.28 M/uL (4.20-5.40); White Blood Count 5.96 K/ul (4.8-10.8)
[2022-11-08 06:45] LABS: Calcium 9.4 mg/dl (8.6-10.3); Creatinine Clr Calc Pharmacy 72.7 ml/min; Est GFR (African American) 84.5 ml/min; Est GFR (Non-African American) 72.9 ml/min; Magnesium 1.9 mg/dl (1.7-2.4); Potassium 4.3 mmol/L (3.5-5.1)
[2022-11-08] MEDS ORDERED: METOPROLOL SUCC 25MG EXT REL TAB PO SCH (09:00)
[2022-11-08] MEDS ORDERED: LOSARTAN POTASSIUM 25 MG TAB PO SCH (09:00)
[2022-11-08] MEDS ORDERED: DOXYCYCLINE HYCLATE 100 MG CAP PO SCH (09:15)
[2022-11-08] MEDS: ATORVASTATIN 40 MG TAB PO SCH (09:40)
[2022-11-08] MEDS: CLOPIDOGREL BISULFATE 75 MG TAB PO SCH (09:40)
[2022-11-08] MEDS: APIXABAN 5 MG TABLET PO SCH (09:41)
[2022-11-08] MEDS: ASPIRIN 81 MG ECTAB PO SCH (09:44)
--- NOTE | 2022-11-08 11:38 | Hospitalist Progress Note ---
Date of Service November 08, 2022 Assessment & Plan (1) Chest pain: (2) CAD (coronary artery disease): (3) Tobacco abuse: (4) Pulmonary embolism: Plan This is a 57 yr old F who has a significant PMH of tobacco abuse, newly dx CAD with recent [place] and 2 ANNAMARIE placement on 10/23 while on vacation in [place] who presents due to lack of energy, chest tightness and fever x 2-3 days. Chest Pain CAD with recent ANNAMARIE x 2 10/23 to RCA while in [place] on 10/23 Serial cardiac enzymes x3 remain unremarkable EKG did not show any significant changes Echo of the heart showed EF of 55 to 60%, LV systolic function normal, grade 1 diastolic dysfunction no regional wall motion abnormalities, there is mild tricuspid regurgitation and Doppler findings do not suggest pulmonary hypertension Appreciate cardiology input and recommendation We will continue asa, plavix, elquis (PE), coreg, losartan and statin No more cardiac symptoms and should be discharged home this afternoon Positive Lyme titer Positive for IgG and IgM No associated symptoms of arthralgia/arthritis or rash or any other symptoms Await definitive DNA testing Started on intravenous doxycycline Definitive Lyme test is pending and the patient be discharged home on doxycycline for a total of 10 days Low blood pressure Medications have been adjusted-Coreg has been discontinued, metoprolol succinate 12.5 mg and losartan 12.5 mg daily May need to increase the blood pressure medications as an outpatient if BP goes high Pulmonary Embolism dx in [place] during hospital admission for CAD at lower right lung continue eliquis No acute pulmonary embolism related symptoms Reported fever and chills biofire negative obtain lyme panel-positive as above No more fever and no chills Tobacco abuse Continue to encourage smoke Patient using Chantix as outpatient DVT prophylaxis: Continue Eliquis Full code PCP: Viraj Discharged home this afternoon Admission and Anticipated Discharge Date Admission Date: November 07, 2022 Subjective 11/07/2022 The patient was seen and examined in telemetry unit She has been free from any chest pain She was noted to have Titer positive for immunoglobin DrTianna Without any other associated with symptoms 11/08/2022 The patient was seen and examined in telemetry unit She has been feeling much better and denies any symptoms No fever and no chills and no chest pain and her palpitation Her blood pressure is noted to be low at 105/66 She will be going home this afternoon Review of Systems Review of Systems: All systems reviewed and are unremarkable except as noted below Physical Exam Physical Exam: Lying in bed comfortably Constitutional: well developed, well nourished and + obese; not ill appearing Eyes: PERRL, conjunctivae normal, anicteric sclerae ENMT: external ear and nose normal, oropharynx normal Respiratory: no respiratory distress Auscultation: lungs clear to auscultation bilaterally Cardiovascular: Rate/Rhythm: regular rate and regular rhythm; not tachycardic Heart Sounds: normal S1 and normal S2; no murmur Extremities: no edema Gastrointestinal (Abdomen): Inspection/Auscultation: normal bowel sounds; abdomen not distended Percussion/Palpation: abdomen soft; abdomen nontender Musculoskeletal: No acute arthritis involving any of the joint Neurologic: normal touch/pain/proprioception, moves all extremities and + focal motor deficit Psychiatric: A+Ox3, euthymic affect Lymphatic: no cervical or axillary lymphadenopathy Results & Data Results & Data Vital Signs (Past 12 Hours) Vital Signs Temp Pulse Pulse Pulse Resp BP Pulse Ox 11/08/22 08:00 11/08/22 09:24 68 105/66 11/08/22 08:12 36.5 C 60 16 100/48 L 95 11/08/22 08:01 49 L 11/08/22 03:05 36.6 C 68 16 124/77 97 11/08/22 00:00 49 L O2 Del Method 11/08/22 08:00 Room Air 11/08/22 09:24 11/08/22 08:12 Room Air 11/08/22 08:01 11/08/22 03:05 Room Air 11/08/22 00:00 Laboratory Results Short CBC 11/08/22 Range/Units 06:01 WBC 5.96 (4.8-10.8) K/ul Hgb 13.0 (12.0-16.0) g/dl Hct 37.8 (37.0-47.0) % Plt Count 229 (130-400) K/uL BMP 11/08/22 06:01 Sodium 137 Potassium 4.3 Chloride 108 H Carbon Dioxide 24 BUN 20 Creatinine 0.87 Glucose 89 Calcium 9.4 Medications Administered Current Inpatient Medications Acetaminophen (Acetaminophen 325 Mg Tab) 650 mg PO Q4H PRN PRN Reason: Pain or Fever Stop: 12/06/22 15:39 Al Hydrox/Mg Hydrox/Simethicone (Aluminum/Magnesium Susp 30 Ml Udc) 15 ml PO Q4H PRN PRN Reason: Dyspepsia Stop: 12/06/22 15:39 Apixaban (Apixaban 5 Mg Tablet) 5 mg PO BID [facility] Stop: 12/06/22 20:59 Last Admin: 11/08/22 09:41 Dose: 5 mg Aspirin (Aspirin 81 Mg Ectab) 81 mg PO DAILY [facility] Stop: 12/07/22 08:59 Last Admin: 11/08/22 09:44 Dose: 81 mg Atorvastatin Calcium (Atorvastatin 40 Mg Tab) 80 mg PO DAILY [facility] Stop: 12/07/22 08:59 Last Admin: 11/08/22 09:40 Dose: 80 mg Clopidogrel Bisulfate (Clopidogrel Bisulfate 75 Mg Tab) 75 mg PO DAILY [facility] Stop: 12/07/22 08:59 Last Admin: 11/08/22 09:40 Dose: 75 mg Doxycycline Hyclate (Doxycycline Hyclate 100 Mg Cap) 100 mg PO BID [facility] Stop: 11/18/22 09:14 Last Admin: 11/08/22 09:42 Dose: 100 mg Losartan Potassium (Losartan Potassium 25 Mg Tab) 12.5 mg PO DAILY [facility] Stop: 12/09/22 08:59 Magnesium Hydroxide (Magnesium Hydroxide Susp 30 Ml Udc) 30 ml PO Q12H PRN PRN Reason: Constipation Stop: 12/06/22 15:39 Metoprolol Succinate (Metoprolol Succ 25mg Ext Rel Tab) 12.5 mg PO QAM [facility] Stop: 12/08/22 08:59 Last Admin: 11/08/22 09:38 Dose: 12.5 mg Ondansetron HCl (Ondansetron Inj 2 Mg/Ml 2 Ml Vial) 4 mg IV Q6H PRN PRN Reason: Nausea Stop: 12/06/22 15:39 Polyethylene Glycol (Polyethylene (Miralax) 17 Gm Pack) 17 gm PO DAILY PRN PRN Reason: Constipation Stop: 12/06/22 15:39
--- NOTE | 2022-11-08 12:07 | Cardiology Progress Note ---
Date of Service November 08, 2022 Assessment & Plan (1) Chest pain: (2) CAD (coronary artery disease): (3) Pulmonary embolism: (4) Elevated troponin: (5) Lyme disease, acute: Plan 57-year-old female admitted with fevers and mild chest tightness. Stable ECG and echocardiogram. Troponins minimally elevated and flat, not indicative of acute coronary syndrome. Chest discomfort has resolved. Lyme screen demonstrates positive IgM. Treated with doxycycline. Confirmatory Western blot pending. Notes fatigue with ongoing hypotension. Carvedilol discontinued in favor of low-dose Toprol-XL. Recommend reducing losartan to 12.5 mg daily. Continue aspirin, clopidogrel, and Eliquis as ordered. Patient recently evaluated by cardiology in the outpatient setting with plans to discontinue aspirin in the next 3 to 4 weeks. Admission and Anticipated Discharge Date Admission Date: November 07, 2022 Subjective Patient seen and examined at the bedside. Feeling better today. No recurrent chest discomfort. Telemetry reveals sinus rhythm. Blood pressure remains borderline hypotensive. Carvedilol discontinued in favor of low-dose Toprol-XL 12.5 mg daily. Denies lightheadedness or dizziness. No recurrent fevers. Review of Systems Review of Systems: All systems reviewed & are unremarkable except as noted in Subjective Physical Exam Constitutional: well developed and well nourished; no acute distress Respiratory: normal respiratory effort; no respiratory distress, no labored breathing and no retractions Auscultation: lungs clear to auscultation bilaterally; no crackles, no rales, no rhonchi and no wheezes Cardiovascular: Rate/Rhythm: regular rate and regular rhythm Heart Sounds: normal S1 and normal S2; no murmur Vessels: radial pulses present; no JVD and no carotid bruit Extremities: no edema Gastrointestinal (Abdomen): Inspection/Auscultation: abdomen normal to inspection and normal bowel sounds; abdomen not distended Perc ussion/Palpation: abdomen soft; abdomen nontender, no guarding and abdomen not rigid Neurologic: CN's II-XI intact bilaterally and moves all extremities; no focal motor deficits Motor/Sensory: no tremor Psychiatric: A+Ox3, euthymic affect Results & Data Vital Signs (Past 12 Hours) Vital Signs Temp Pulse Pulse Pulse Resp BP Pulse Ox 11/08/22 08:00 11/08/22 09:24 68 105/66 11/08/22 08:12 36.5 C 60 16 100/48 L 95 11/08/22 08:01 49 L 11/08/22 03:05 36.6 C 68 16 124/77 97 O2 Del Method 11/08/22 08:00 Room Air 11/08/22 09:24 11/08/22 08:12 Room Air 11/08/22 08:01 11/08/22 03:05 Room Air Laboratory Results CBC 11/08/22 Range/Units 06:01 WBC 5.96 (4.8-10.8) K/ul RBC 4.28 (4.20-5.40) M/uL Hgb 13.0 (12.0-16.0) g/dl Hct 37.8 (37.0-47.0) % Plt Count 229 (130-400) K/uL Neut # (Auto) 3.33 (1.40-6.50) K/uL Lymph # (Auto) 1.77 (1.2-3.4) K/uL O'Brien # (Auto) 0.60 H (0.11-0.59) K/uL Eos # (Auto) 0.23 (0-0.50) K/uL Baso # (Auto) 0.02 (0-0.2) K/uL Comprehensive Metabolic Panel 11/08/22 Range/Units 06:01 Sodium 137 (136-145) mmol/L Potassium 4.3 (3.5-5.1) mmol/L Chloride 108 H (98-107) mmol/L Carbon Dioxide 24 (21-32) mmol/L BUN 20 (6-23) mg/dl Creatinine 0.87 (0.6-1.2) mg/dl Glucose 89 (70-99(Fasting)) mg/dl Calcium 9.4 (8.6-10.3) mg/dl Intake and Output 11/07/22 11/08/22 11/08/22 22:59 06:59 14:59 Intake Total 110 / 440 Balance 110 / 440 Intake: IV 110 / 220 Doxycycline Hyclate 100 mg In 110 / 220 Dextrose 5% 100 ml @ 50 mls/hr IV Q12H [facility] Rx#:[id number] Other: # Unmeasured Voids 2 1 Weight 76.5 kg Weight Measurement Method Built in [facility]
--- NOTE | 2022-11-08 13:52 | Electrocardiogram Report ---
Test Reason : Blood Pressure : / mmHG Vent. Rate : 050 BPM Atrial Rate : 050 BPM P-R Int : 184 ms QRS Dur : 084 ms QT Int : 456 ms P-R-T Axes : 070 -03 -25 degrees QTc Int : 415 ms Sinus bradycardia Low voltage QRS T wave abnormality, consider inferior ischemia Abnormal ECG When compared with ECG of 07-NOV-2022 05:55, Nonspecific T wave abnormality no longer evident in Anterior leads Confirmed by Dominic Grant ([id number]) on 11/08/2022 1:52:22 PM Referred By: Az Cali Confirmed By:Dominic Grant
--- NOTE | 2022-11-08 17:02 | Discharge Summary ---
Date of Service November 08, 2022 Admission HPI Per Admitting Provider This is a 57 yr old F who has a significant PMH of tobacco abuse, newly dx CAD with recent [place] and 2 ANNAMARIE placement on 10/23 while on vacation in [place] who presents due to lack of energy, chest tightness and fever x 2-3 days. Two days ago she was up at her property and was picking [place]. She went back to her camper and was eating an orange and had no energy. She ended up napping for 2 hours which is unusual for her. She felt chilled and took her temperature and it was 101.4. She thought maybe she was dehydrated. She also describes chest tightness for the past 3 days. Describes it as mild, does not change with acti vity and is not associated with worsened SOB. Prior to she had her heart attack she mowed grass. Since having stents placed she has had lack of energy. She denies syncope, sweats, dizziness, lightheaded, current chest pain, sob, n/v/d, abd pain or change in bowel or bladder habits. SHe is working on quiting smoking and has cut down as well is taking chantix. Prior to stent placement she hasn't seen a in 10 years. Admission Exam Per Admitting Provider NAD, well developed Lungs: CTA, no wheezing or crackles Cardiac: Normal S1/S2, no murmur Abd: ND, NT, soft MSK: no LE edema Psych: AAOx3, normal affect Principal Diagnosis Lyme disease, chest pain-no ACS, pulmonary embolism Discharge Exam Lying in bed comfortably Constitutional well developed, well nourished and + obese; not ill appearing Eyes PERRL, conjunctivae normal, anicteric sclerae ENMT external ear and nose normal, oropharynx normal Respiratory no respiratory distress Auscultation: lungs clear to auscultation bilaterally Cardiovascular Rate/Rhythm: regular rate and regular rhythm; not tachycardic Heart Sounds: normal S1 and normal S2; no murmur Extremities: no edema Gastrointestinal (Abdomen) Inspection/Auscultation: normal bowel sounds; abdomen not distended Percussion/Palpation: abdomen soft; abdomen nontender Neurologic normal touch/pain/proprioception, moves all extremities and + focal motor deficit Psychiatric A+Ox3, euthymic affect Lymphatic no cervical or axillary lymphadenopathy Discharge Data Allergies Allergy/AdvReac Type Severity Reaction Status Date / Time No Known Allergies Allergy Unverified 11/06/22 10:41 Consultations 11/06/22 11:58 ED Decision to Admit Stat 11/06/22 12:04 Consult Cardiology Routine Hospital Course (1) Chest pain: (2) CAD (coronary artery disease): (3) Tobacco abuse: (4) Pulmonary embolism: Plan This is a 57 yr old F who has a significant PMH of tobacco abuse, newly dx CAD with recent [place] and 2 ANNAMARIE placement on 10/23 while on vacation in [place] who presents due to lack of energy, chest tightness and fever x 2-3 days. Chest Pain CAD with recent ANNAMARIE x 2 10/23 to RCA while in [place] on 10/23 Serial cardiac enzymes x3 remain unremarkable EKG did not show any significant changes Echo of the heart showed EF of 55 to 60%, LV systolic function normal, grade 1 diastolic dysfunction no regional wall motion abnormalities, there is mild tricuspid regurgitation and Doppler findings do not suggest pulmonary hypertension Appreciate cardiology input and recommendation We will continue asa, plavix, elquis (PE), coreg, losartan and statin No more cardiac symptoms and should be discharged home this afternoon Positive Lyme titer Positive for IgG and IgM No associated symptoms of arthralgia/arthritis or rash or any other symptoms Await definitive DNA testing Started on intravenous doxycycline Definitive Lyme test is pending and the patient be discharged home on doxycycline for a total of 10 days Low blood pressure Medications have been adjusted-Coreg has been discontinued, metoprolol succinate 12.5 mg and losartan 12.5 mg daily May need to increase the blood pressure medications as an outpatient if BP goes high Pulmonary Embolism dx in [place] during hospital admission for CAD at lower right lung continue eliquis No acute pulmonary embolism related symptoms Reported fever and chills biofire negative obtain lyme panel-positive as above No more fever and no chills Tobacco abuse Continue to encourage smoke Patient using Chantix as outpatient DVT prophylaxis: Continue Eliquis Full code PCP: Viraj Discharged home this afternoon Total Time Total Time Spent Total Time Spent (In Minutes): 35 minutes Discharge Plan Discharge Items Patient Disposition: Home - Self-Care Reason For Visit: FEVER AFTER STENT PLACMENT, CHEST PAIN Discharge Diagnosis: Lyme disease, chest pain-no ACS, pulmonary embolism Condition on Discharge: Good Activity: Resume your previous activity Non-emergency contact: Primary Care Provider Call non-emergency contact if: you have any medication questions and your symptoms worsen Follow-up/Referrals: Az Cali MD [Primary Care Provider] - (Date & Time 11/14/2022 11:00 AM Provider Az Cali III, MD Department [facility] ) Diet: Heart Healthy Addtl Attending Provider Instructions: Please take precautions to avoid falls Finish the course of antibiotic Your blood pressure medications have been adjusted. Please continue the medicine as advised Keep appointment with your healthcare providers Pending Studies at Discharge: Yes Studies:: Definitive Lyme test Stand-Alone Forms: [facility] Offees, Smoking Cessation Medications and DC Order Prescriptions: New doxycycline hyclate 100 mg Capsule 100 mg PO BID 8 Days Qty: 16 0RF losartan 25 mg Tablet 12.5 mg PO DAILY 30 Days Qty: 15 0RF metoprolol succinate 25 mg Tablet Extended Release 24 Hr 12.5 mg PO QAM 30 Days Qty: 15 0RF Continued atorvastatin 80 mg tablet 80 mg PO HS clopidogrel 75 mg tablet 75 mg PO QAM aspirin 81 mg tablet,delayed release (DR/EC) 81 mg PO QAM Eliquis 5 mg (74 tabs) tablets,dose pack 5 mg PO BID Rx Instructions: Start Date 10/24/22 - End Date 11/23/22 varenicline 0.5 mg (11)- 1 mg (42) tablets,dose pack 1 ea PO BID Rx Instructions: Start Date 10/30/22 - End Date 11/27/22 Discontinued losartan 50 mg tablet 50 mg PO QAM carvedilol 3.125 mg tablet 3.125 mg PO BID Discharge Orders: Discharge Order (Routine); Ordered 11/08/22 Ordered By: Jamal Madden/Other Patient Handouts: Pulmonary Embolism, Preventing Lyme Disease, Coping with Smoking Withdrawal, The Benefits of Living Smoke Free, Tick Bites, ED Lyme Disease Admission Data Admit Date/Time: 11/07/22 11:50 Attending Provider: Jamal Canada Admit Provider: Lambert Dillard Primary Care Provider: Az Cali Other Providers: Danilo Hernandez Thiviyanath Other Interventions: Discharge Summary Assessment (RN) Last Done: 11/08/22 13:02
[2022-11-09] MEDS ORDERED: LOSARTAN POTASSIUM 25 MG TAB PO SCH (09:00)
[2022-11-12 15:37] LABS: 18KDIGG Band NON-REACTIVE; 23KDIGG Band REACTIVE; 23KDIGM Band REACTIVE; 28KDIGG Band NON-REACTIVE; 30KDIGG Band NON-REACTIVE; 39KDIGG Band NON-REACTIVE; 39KDIGM Band NON-REACTIVE; 41KDIGG Band REACTIVE; 41KDIGM Band NON-REACTIVE; 45KDIGG Band NON-REACTIVE; 58KDIGG Band NON-REACTIVE; 66KDIGG Band NON-REACTIVE; 93KDIGG Band NON-REACTIVE; Lyme Antibodies, WB IgG NEGATIVE (NEGATIVE); Lyme Antibodies, WB IgM NEGATIVE (NEGATIVE)
== END 2022-11-08 13:35 | disposition home or self-care (01) | DRG 867 ==
LOC: 2E 10:21 → ED 10:21 → SUATTDRO 12:04 → 2E 13:31